=== PATIENT | male | born 1950 | race Caucasian/White ===

== ENCOUNTER → 2021-10-24 | Outpatient (CLI) | payer MEDICARE, BC ==
[2021-10-24 11:44] LABS: BASO # 0.1 10^3/uL (0.0-0.2); BASO % 1.1 % (0.0-1.0); EOS # 0.2 10^3/uL (0.0-0.5); EOS % 2.3 % (0.0-3.0); HEMATOCRIT 45.4 % (42.0-52.0); HEMOGLOBIN 15.2 g/dl (13.5-17.5); LYMPH # 3.8 10^3/uL (1.5-5.0); LYMPH % 40.3 % (24.0-44.0); MEAN CORPUSCULAR HGB CONC 33.5 g/dl (32.0-36.5); MEAN CORPUSCULAR VOLUME 86.5 fl (80.0-96.0); MONO # 1.2 10^3/uL (0.0-0.8); NEUTROPHILS % 43.1 % (36.0-66.0); PLATELET COUNT, AUTOMATED 245 10^3/uL (150-450); RED BLOOD COUNT 5.25 10^6/uL (4.30-6.10); WHITE BLOOD COUNT 9.4 10^3/uL (4.0-10.0)
[2021-10-24 12:11] LABS: ALBUMIN 3.9 GM/DL (3.2-5.2); ALT/SGPT 59 U/L (12-78); BILIRUBIN,DIRECT 0.2 MG/DL (0.0-0.2); BILIRUBIN,TOTAL 0.4 MG/DL (0.2-1.0); BLOOD UREA NITROGEN 17 MG/DL (7-18); CALCIUM LEVEL 9.4 MG/DL (8.8-10.2); CARBON DIOXIDE LEVEL 29 MEQ/L (21-32); CHLORIDE LEVEL 106 MEQ/L (98-107); CHOLESTEROL LEVEL 213 MG/DL (<200); CHOLESTEROL RISK RATIO 5.605 (<5); CREATININE FOR GFR 1.06 MG/DL (0.70-1.30); GLOMERULAR FILTRATION RATE > 60.0 (>49); GLUCOSE, FASTING 75 MG/DL (70-100); HDL CHOLESTEROL 38 MG/DL (>40); LDH LACTATE DEHYDROGENASE 206 U/L (87-241); LDL CHOLESTEROL 105 MG/DL (<100); NON-HDL-C 175 MG/DL; POTASSIUM SERUM 4.2 MEQ/L (3.5-5.1); SODIUM LEVEL 139 MEQ/L (136-145); TOTAL PROTEIN 7.2 GM/DL (6.4-8.2); TRIGLYCERIDES LEVEL 352 MG/DL (<150)
== END ==
LOC: M LAB 10:39
PROVIDERS: ATTEND Internal Medicine Interventional Cardiology
DX: I25.10 Atherosclerotic heart disease of native coronary artery without angina pectoris (principal); E78.5 Hyperlipidemia, unspecified

== ENCOUNTER → 2023-10-14 | Outpatient (CLI) | payer MEDICARE, BC | LOC: M RAD 09:04 | PROVIDERS: ATTEND Surgery Vascular Surgery | DX: I71.43 Infrarenal abdominal aortic aneurysm, without rupture (principal); Z95.828 Presence of other vascular implants and grafts ==

== ENCOUNTER → 2023-10-14 | Outpatient (CLI) | payer BC, MEDICARE | LOC: M PLAIMG 12:33 | PROVIDERS: ATTEND Family Medicine | DX: M51.36 Other intervertebral disc degeneration, lumbar region (principal) ==

== ENCOUNTER → 2024-09-13 | Outpatient (CLI) | payer MEDICARE, BC ==
[~2024-09-13] MED LIST: AMLO1TAB25 PO; ATOR80TA59 PO; CALC-460 PO; COLA100C5 PO; COLC0.6T47 PO; CYCL5TAB4 PO; ECOT81TA5 PO; EZET10TA21 PO; GNP250TA9 PO; HYDR-3490 PO; L. A1TAB6 PO; LIDO5TD TD; MAG100TA PO; METO1TAB33 PO; NORV5TAB PO; OXYC1TAB23 PO; RA T500C2 PO; SENN18TA PO
[2024-09-13 16:46] LABS: BASO # 0.1 10^3/uL (0.0-0.2); BASO % 0.7 % (0.0-1.0); EOS # 0.2 10^3/uL (0.0-0.5); EOS % 1.8 % (0.0-3.0); LYMPH # 4.3 10^3/uL (1.5-5.0); LYMPH % 37.9 % (24.0-44.0); MONO # 1.0 10^3/uL (0.0-0.8); MONO % 8.4 % (2.0-8.0); NEUTROPHILS # 5.8 10^3/uL (1.5-8.5); NEUTROPHILS % 50.8 % (36.0-66.0); PLATELET COUNT, AUTOMATED 301 10^3/uL (150-450)
[2024-09-13 16:56] LABS: APPEARANCE, URINE CLEAR (CLEAR); BACTERIA, URINE AUTO NEGATIVE (NEGATIVE); BILIRUBIN, URINE AUTO NEGATIVE (NEGATIVE); BLOOD, URINE BLOOD NEGATIVE (NEGATIVE); GLUCOSE, URINE (UA) AUTO NEGATIVE (NEGATIVE); KETONE, URINE AUTO NEGATIVE (NEGATIVE); LEUKOCYTE ESTERASE, URINE AUTO NEGATIVE (NEGATIVE); MUCUS, URINE SMALL (NEGATIVE); NITRITE, URINE AUTO NEGATIVE (NEGATIVE); PROTEIN, URINE AUTO NEGATIVE (NEGATIVE); RBC, URINE AUTO 0 /HPF (0-3); SPECIFIC GRAVITY URINE AUTO 1.013 (1.002-1.035); SQUAMOUS EPITHELIAL CELL UR AU 0 /HPF (0-6); UROBILINOGEN, URINE AUTO 0.2 mg/dL (0.0-2.0); WBC, URINE AUTO 0 /HPF (0-3)
[2024-09-13 17:04] LABS: INR 0.93
[2024-09-13 17:22] LABS: CARBON DIOXIDE LEVEL 30.0 MMOL/L (20-31); CHLORIDE LEVEL 102.0 MMOL/L (98-107); CREATININE FOR GFR 0.96 MG/DL (0.70-1.30); GLOMERULAR FILTRATION RATE 84.0 (>42); POTASSIUM SERUM 4.7 MMOL/L (3.5-5.1); SODIUM LEVEL 142.0 MMOL/L (136-145)
[2024-09-13 17:38] LABS: CALCIUM LEVEL 9.4 MG/DL (8.3-10.6)
== END ==
LOC: M PLAIMG 15:27
PROVIDERS: ATTEND Student in an Organized Health Care Education/Training Program
DX: Z01.818 Encounter for other preprocedural examination (principal)

== ENCOUNTER → 2024-09-13 | Outpatient (CLI) | payer MEDICARE, BC | LOC: M RAD 13:20 | PROVIDERS: ATTEND Physician Assistant | DX: M47.12 Other spondylosis with myelopathy, cervical region (principal); M25.512 Pain in left shoulder; M50.00 Cervical disc disorder with myelopathy, unspecified cervical region ==

== ENCOUNTER 2024-09-19 06:27 | Inpatient (IN) | payer MEDICARE, BC ==
[~2024-09-19] VITALS: Ht 172.7 cm; Wt 105.2 kg
[~2024-09-19 06:27] MED LIST changes: -AMLO1TAB25 PO; -COLA100C5 PO; -CYCL5TAB4 PO; -LIDO5TD TD; -OXYC1TAB23 PO; -SENN18TA PO
[2024-09-19] MEDS ORDERED: PROPOFOL 1,000 MG/100 ML VIAL As Ordered ONE (06:49)
[2024-09-19] MEDS ORDERED: SUCCINYLCHOLINE 100MG/5ML SYRINGE As Ordered ONE (06:49)
[2024-09-19] MEDS ORDERED: dexAMETHasone 4 MG/ML 1 ML VIAL As Ordered ONE (06:49)
[2024-09-19] MEDS ORDERED: MIDAZOLAM INJ 2 MG/2 ML VIAL As Ordered ONE (06:49)
[2024-09-19] MEDS ORDERED: LIDOCAINE 2% 100 MG/5 ML SDV (FOR ANES.) As Ordered ONE (06:49)
[2024-09-19] MEDS ORDERED: REMIFENTANIL 1MG VIAL As Ordered ONE (07:01)
[2024-09-19] MEDS ORDERED: PHENYLEPHRINE 10MG/ML 1ML VIAL As Ordered ONE (07:15)
[2024-09-19] MEDS: LR 1,000 ML IV SCH (07:30)
[2024-09-19] MEDS ORDERED: HOME MED LIST COMPLETE! XX SCH (07:35)
[2024-09-19] MEDS: ceFAZolin SOD 2 GM IV ONCE IV ONE (07:58)
[2024-09-19] MEDS ORDERED: PHENYLephrine 500MCG 5ML (100MCG/ML) SYRINGE As Ordered ONE (09:12)
[2024-09-19] MEDS ORDERED: ONDANSETRON 4MG 2ML VIAL As Ordered ONE (13:37)
[2024-09-19] MEDS ORDERED: HYDROmorphone HCL 2 MG/ML 1 ML VIAL As Ordered ONE (14:39)
[2024-09-19] MEDS ORDERED: MORPHINE 2 MG/ML 1 ML VIAL IV PRN (15:35)
[2024-09-19] MEDS ORDERED: ONDANSETRON 4MG 2ML VIAL IV PRN (15:55)
[2024-09-19] MEDS ORDERED: NS (Normal Saline) 0.9% 1,000 ML IV ONE (15:55)
[2024-09-19] MEDS ORDERED: LABETALOL 100 MG/20 ML VIAL As Ordered ONE (16:00)
[2024-09-19] MEDS ORDERED: hydrALAZINE 20 MG/ML 1 ML VIAL As Ordered ONE (16:12)
[2024-09-19] MEDS: hydrALAZINE 20 MG/ML 1 ML VIAL IV PRN (16:15)
[2024-09-19] MEDS ORDERED: hydrALAZINE 20 MG/ML 1 ML VIAL IV PRN (16:25)
[2024-09-19] MEDS ORDERED: LABETALOL 100 MG/20 ML VIAL IV PRN (16:25)
[2024-09-19] MEDS: ONDANSETRON 4MG 2ML VIAL IV PRN (16:41)
[2024-09-19 17:06] LABS: PLATELET COUNT, AUTOMATED 258 10^3/uL (150-450)
[2024-09-19 17:24] LABS: CALCIUM LEVEL 6.8 MG/DL (8.3-10.6); CARBON DIOXIDE LEVEL 24 MMOL/L (20-31); CHLORIDE LEVEL 114 MMOL/L (98-107); CREATININE FOR GFR 0.72 MG/DL (0.70-1.30); GLOMERULAR FILTRATION RATE > 90.0 (>42); POTASSIUM SERUM 3.3 MMOL/L (3.5-5.1); SODIUM LEVEL 148 MMOL/L (136-145)
[2024-09-19] MEDS ORDERED: POTASSIUM CHLORIDE 10MEQ SR TABLET PO ONE (18:05)
[2024-09-19 18:29] VITALS: BP 155/73; TEMP 97.2; O2SAT 91
[2024-09-19] MEDS: KCL 20MEQ IN D5W 1000ML 1,000 ML IV SCH (18:38)
[2024-09-19] MEDS: dexAMETHasone 4 MG/ML 1 ML VIAL IV ONE (18:38)
[2024-09-19] MEDS: ceFAZolin SODIUM 2 GM in DEXTROSE 5% (D5W) ADV/MINI-BAG 50 ML IV SCH (18:38)
[2024-09-19] MEDS: KCL 10MEQ/100ML SWI (KRUN) 10 MEQ in IV 1 EA IV SCH (20:35)
[2024-09-19] MEDS: DOCUSATE SODIUM 100 MG CAPSULE PO SCH (20:35)
[2024-09-19] MEDS: SENNA 8.6 MG TAB PO SCH (20:35)
[2024-09-19 20:49] VITALS: BP 154/75; TEMP 97.1; O2SAT 91
[2024-09-19] MEDS: CYCLOBENZAPRINE 10 MG TABLET PO PRN (21:58)
[2024-09-19 22:30] VITALS: BP 156/78; TEMP 97.2; O2SAT 92
[2024-09-19 23:49] VITALS: BP 153/74; TEMP 97.8; O2SAT 92
[2024-09-20] VITALS (7 sets, daily range): BP systolic 135–168; BP diastolic 68–88; TEMP 97.6–98; O2SAT 9–94
[2024-09-20 06:32] LABS: PLATELET COUNT, AUTOMATED 261 10^3/uL (150-450)
[2024-09-20 07:07] LABS: CALCIUM LEVEL 9.2 MG/DL (8.3-10.6); CARBON DIOXIDE LEVEL 27 MMOL/L (20-31); CHLORIDE LEVEL 103 MMOL/L (98-107); CREATININE FOR GFR 0.88 MG/DL (0.70-1.30); GLOMERULAR FILTRATION RATE > 90.0 (>42); POTASSIUM SERUM 4.2 MMOL/L (3.5-5.1); SODIUM LEVEL 142 MMOL/L (136-145)
[2024-09-20 07:40] LABS: C REACTIVE PROTEIN QUANTITATIV < 0.50 MG/DL (<1.0)
[2024-09-20] MEDS: LIDOCAINE 5% PATCH TD SCH (09:18)
[2024-09-20] MEDS: EZETIMIBE 10 MG TABLET PO SCH (09:19)
[2024-09-20] MEDS: ATORVASTATIN 20 MG TAB PO SCH (09:19)
[2024-09-20] MEDS: amLODIPine 5 MG TAB PO SCH (09:21)
[2024-09-20] MEDS: METOPROLOL SUCC. 100 MG *XL* TAB PO SCH (09:21)
[2024-09-20] MEDS: ACETAMINOPHEN 325 MG TAB PO PRN (15:01)
[2024-09-20] MEDS: CHLORASEPTIC SPRAY MT PRN (15:08)
[2024-09-20] MEDS: hydrALAZINE 20 MG/ML 1 ML VIAL IV PRN (21:12)
[2024-09-20] MEDS: HEPARIN SOD 5000 UNITS/ML 1 ML VIAL/SYRINGE SQ SCH (22:31)
[2024-09-21] VITALS (19 sets, daily range): BP systolic 138–157; BP diastolic 65–80; TEMP 96.8–97.9; O2SAT 90–96
[2024-09-21 07:28] LABS: PLATELET COUNT, AUTOMATED 242 10^3/uL (150-450)
[2024-09-21 08:04] LABS: CALCIUM LEVEL 8.8 MG/DL (8.3-10.6); CARBON DIOXIDE LEVEL 32 MMOL/L (20-31); CHLORIDE LEVEL 104 MMOL/L (98-107); CREATININE FOR GFR 0.80 MG/DL (0.70-1.30); GLOMERULAR FILTRATION RATE > 90.0 (>42); POTASSIUM SERUM 3.8 MMOL/L (3.5-5.1); SODIUM LEVEL 145 MMOL/L (136-145)
[2024-09-21] MEDS: amLODIPine 10 MG TAB PO SCH (08:41)
[2024-09-21] MEDS: LIDOCAINE 5% PATCH TD SCH (18:35)
[2024-09-22 04:14] VITALS: BP 130/78; TEMP 96.9; O2SAT 95
[2024-09-22 04:31] LABS: PLATELET COUNT, AUTOMATED 254 10^3/uL (150-450)
[2024-09-22 04:57] LABS: CALCIUM LEVEL 8.8 MG/DL (8.3-10.6); CARBON DIOXIDE LEVEL 28 MMOL/L (20-31); CHLORIDE LEVEL 104 MMOL/L (98-107); CREATININE FOR GFR 0.90 MG/DL (0.70-1.30); GLOMERULAR FILTRATION RATE > 90.0 (>42); POTASSIUM SERUM 3.8 MMOL/L (3.5-5.1); SODIUM LEVEL 145 MMOL/L (136-145)
[2024-09-22 08:14] VITALS: BP 135/77; TEMP 98.4; O2SAT 93
[2024-09-22 09:21] VITALS: BP 132/68
[2024-09-22] MEDS ORDERED: AMLO1TAB25 PO (10:42)
[2024-09-22] MEDS ORDERED: OXYC1TAB23 PO (10:42)
[2024-09-22] MEDS ORDERED: SENN18TA PO (10:42)
[2024-09-22] MEDS ORDERED: LIDO5TD TD (10:42)
[2024-09-22] MEDS ORDERED: COLA100C5 PO (10:42)
[2024-09-22] MEDS ORDERED: CYCL5TAB4 PO (10:42)
== END 2024-09-22 13:30 | disposition home or self-care (01) | DRG 472 ==
LOC: M SDC 06:27 → M PCU 06:28 → M SDC 18:16 → OBSVTOIN 09-21 14:21
PROVIDERS: ADMIT Internal Medicine; ATTEND Neurological Surgery
PROC: 0RG20A0 Fusion of 2 or more Cervical Vertebral Joints with Interbody Fusion Device, Anterior Approach, Anterior Column, Open Approach (ICD-10-PCS; principal; 2024-09-16)
PROC: 0RB30ZZ Excision of Cervical Vertebral Disc, Open Approach (ICD-10-PCS; 2024-09-16)
DX: M50.021 Cervical disc disorder at C4-C5 level with myelopathy (principal); E87.0 Hyperosmolality and hypernatremia; G95.20 Unspecified cord compression; J98.11 Atelectasis; I25.10 Atherosclerotic heart disease of native coronary artery without angina pectoris; I10 Essential (primary) hypertension; Z95.5 Presence of coronary angioplasty implant and graft; R09.02 Hypoxemia; M10.9 Gout, unspecified; E78.5 Hyperlipidemia, unspecified; E87.6 Hypokalemia; Z91.030 Bee allergy status; Z88.8 Allergy status to other drugs, medicaments and biological substances; Z79.899 Other long term (current) drug therapy; Z85.46 Personal history of malignant neoplasm of prostate; M50.022 Cervical disc disorder at C5-C6 level with myelopathy

== ENCOUNTER → 2024-10-05 | Outpatient (CLI) | payer MEDICARE, BC ==
[~2024-10-05] MED LIST changes: +AMLO1TAB25 PO; +COLA100C5 PO; +CYCL5TAB4 PO; +LIDO5TD TD; +OXYC1TAB23 PO; +SENN18TA PO
[2024-10-05 13:48] LABS: ALT/SGPT 66.0 U/L (7.0-40); AST/SGOT 41.0 U/L (<34); CALCIUM LEVEL 9.4 MG/DL (8.3-10.6); CARBON DIOXIDE LEVEL 31.0 MMOL/L (20-31); CHLORIDE LEVEL 96.0 MMOL/L (98-107); CREATININE FOR GFR 0.96 MG/DL (0.70-1.30); GLOMERULAR FILTRATION RATE 84.0 (>42); POTASSIUM SERUM 3.7 MMOL/L (3.5-5.1); SODIUM LEVEL 139.0 MMOL/L (136-145)
== END ==
LOC: M PLALAB 11:44
PROVIDERS: ATTEND Family Medicine
DX: I10 Essential (primary) hypertension (principal)

== ENCOUNTER → 2024-11-02 | Outpatient (CLI) | payer MEDICARE, BC ==
[~2024-11-02] MED LIST changes: -RA T500C2 PO; +TURM500C10 PO
== END ==
LOC: M RAD 13:43
PROVIDERS: ATTEND Neurological Surgery
DX: M50.021 Cervical disc disorder at C4-C5 level with myelopathy (principal)

== ENCOUNTER → 2024-12-21 | Outpatient (CLI) | payer MEDICARE, BC ==
[~2024-12-21] MED LIST changes: -COLC0.6T47 PO; +COLC0.6T53 PO; -EZET10TA21 PO; +EZET10TA57 PO
== END ==
LOC: M RAD 11:41
PROVIDERS: ATTEND Neurological Surgery
DX: M50.021 Cervical disc disorder at C4-C5 level with myelopathy (principal); Z98.890 Other specified postprocedural states

== ENCOUNTER → 2025-02-23 | Outpatient (CLI) | payer MEDICARE, BC ==
[2025-02-23 18:40] LABS: PLATELET COUNT, AUTOMATED 288 10^3/uL (150-450)
[2025-02-23 19:10] LABS: ALT/SGPT 43.0 U/L (7.0-40); AST/SGOT 34.0 U/L (<34); CALCIUM LEVEL 9.1 MG/DL (8.3-10.6); CARBON DIOXIDE LEVEL 29.0 MMOL/L (20-31); CHLORIDE LEVEL 104.0 MMOL/L (98-107); CREATININE FOR GFR 0.92 MG/DL (0.70-1.30); GLOMERULAR FILTRATION RATE 88.4 (>42); POTASSIUM SERUM 4.2 MMOL/L (3.5-5.1); SODIUM LEVEL 143.0 MMOL/L (136-145)
== END ==
LOC: M PLALAB 16:29
DX: M25.562 Pain in left knee (principal); M1A.0720 Idiopathic chronic gout, left ankle and foot, without tophus (tophi)

== ENCOUNTER → 2025-02-26 | Outpatient (CLI) | payer MEDICARE, BC | LOC: M RAD 09:44 | PROVIDERS: ATTEND Physician Assistant | DX: M50.021 Cervical disc disorder at C4-C5 level with myelopathy (principal); M50.022 Cervical disc disorder at C5-C6 level with myelopathy ==

== ENCOUNTER → 2025-02-26 | Outpatient (CLI) | payer MEDICARE, BC | LOC: M SOG 07:35 | PROVIDERS: ATTEND Physician Assistant | DX: M17.0 Bilateral primary osteoarthritis of knee (principal); M50.021 Cervical disc disorder at C4-C5 level with myelopathy; M50.022 Cervical disc disorder at C5-C6 level with myelopathy ==